=== PATIENT | female | born 1990 | race Asian ===

== ENCOUNTER 2018-09-13 16:28 | Emergency (ER) | payer MEDICAID, OTHER ==
[~2018-09-13] VITALS: Ht 152.4 cm; Wt 80.0 kg
[2018-09-13] MEDS ORDERED: GABA-531 PO (16:48)
[2018-09-13] MEDS ORDERED: LITH300C3 PO (16:48)
[2018-09-13] MEDS ORDERED: DULO20CA30 PO (16:48)
[2018-09-13] MEDS ORDERED: TRAZ-252 PO (16:48)
[2018-09-13] MEDS ORDERED: BENZOCAINE/MENTHOL LOZENGE PO ONE (17:30)
[2018-09-13] MEDS ORDERED: AMOXICILLIN TRIHYDRATE 250 MG CAPSULE PO ONE (17:45)
[2018-09-13 17:55] VITALS: BP 109/77
== END 2018-09-13 18:20 | disposition home or self-care (01) ==
LOC: EMS 16:31 → EDSEX 16:31 → EMS 18:20
DX: J02.9 Acute pharyngitis, unspecified (principal); H92.03 Otalgia, bilateral; R51 Headache; F31.9 Bipolar disorder, unspecified; F12.90 Cannabis use, unspecified, uncomplicated; F41.9 Anxiety disorder, unspecified
CPT/HCPCS: 87430

== ENCOUNTER 2018-09-26 14:39 | Emergency (ER) | payer MEDICAID ==
[~2018-09-26] VITALS: Ht 152.4 cm; Wt 75.0 kg
[~2018-09-26 14:39] MED LIST: DULO20CA30 PO; GABA-531 PO; LITH300C3 PO; TRAZ-252 PO
[2018-09-26] MEDS ORDERED: DEXAMETHASONE SOD PHOS 4 MG/ML 5 ML VIAL IM ONE (15:45)
[2018-09-26] MEDS ORDERED: ACETAMINOPHEN 500 MG TABLET PO ONE (15:45)
[2018-09-26] MEDS ORDERED: AMOX TR/POT CLAV 875 MG/125 MG TABLET PO ONE (15:45)
[2018-09-26 16:30] VITALS: BP 137/84
== END 2018-09-26 16:39 | disposition home or self-care (01) ==
LOC: EMS 14:41
DX: J02.0 Streptococcal pharyngitis (principal); F31.9 Bipolar disorder, unspecified; F12.90 Cannabis use, unspecified, uncomplicated; Z88.8 Allergy status to other drugs, medicaments and biological substances
CPT/HCPCS: 96372; 99283; J1100

== ENCOUNTER 2020-07-01 02:47 | Inpatient (IN) | payer MEDICAID ==
[~2020-07-01] VITALS: Ht 157.5 cm; Wt 78.3 kg
[~2020-07-01 02:47] MED LIST changes: +DULO20CA27 PO; -DULO20CA30 PO; +GABA-1181 PO; -GABA-531 PO
[2020-07-01] MEDS ORDERED: LORazepam 2 MG TABLET PO PRN (10:45)
[2020-07-01] MEDS ORDERED: ZOLPIDEM TARTRATE 10 MG TABLET PO PRN (10:45)
[2020-07-01] MEDS ORDERED: HALOPERIDOL 5 MG TABLET PO PRN (10:45)
[2020-07-01] MEDS ORDERED: DULO-8 PO (10:56)
[2020-07-01] MEDS ORDERED: LamoTRIgine 25 MG TABLET PO SCH (12:30)
[2020-07-01] MEDS: DULoxetine HCL 60 MG CAPSULE PO SCH (12:43)
[2020-07-01 13:08] VITALS: BP 125/67
[2020-07-01] MEDS ORDERED: IBUPROFEN 400 MG TABLET PO PRN (15:30)
[2020-07-01] MEDS ORDERED: DOCUSATE SODIUM 100 MG CAPSULE PO PRN (15:30)
[2020-07-01] MEDS ORDERED: LOPERAMIDE HCL 2 MG CAPSULE PO PRN (15:30)
[2020-07-01] MEDS ORDERED: PETROLATUM,WHITE 28 GM JELLY TP PRN (15:30)
[2020-07-01] MEDS ORDERED: GuaiFENesin/D-METHORPHAN [SUGAR-FREE] 200-20MG/10 ML SYRUP UDCUP PO PRN (15:30)
[2020-07-01] MEDS ORDERED: ONDANSETRON HCL 4 MG TABLET PO PRN (15:30)
[2020-07-01] MEDS ORDERED: MAG HYDROX/AL HYDROX/SIMETH ES 30 ML SUSPENSION UDCUP PO PRN (15:30)
[2020-07-01] MEDS ORDERED: MAGNESIUM HYDROXIDE SUSPENSION 30 ML UDCUP PO PRN (15:30)
[2020-07-01] MEDS ORDERED: CloNIDine HCL 0.1 MG TABLET PO PRN (15:30)
[2020-07-01] MEDS ORDERED: NICOTINE 14 MG/24 HOUR PATCH TD PRN (15:30)
[2020-07-01] MEDS ORDERED: ALBUTEROL SULFATE HFA 90 MCG/PUFF 8 GM INHALER IH PRN (15:30)
[2020-07-01] MEDS ORDERED: ACETAMINOPHEN 325 MG TABLET PO PRN (15:30)
[2020-07-01 16:03] VITALS: BP 113/87
[2020-07-01] MEDS: CLINDAMYCIN HCL 300 MG CAPSULE PO SCH ×2 (17:58→20:02)
[2020-07-01] MEDS: TraZODone HCL 100 MG TABLET PO SCH (20:02)
[2020-07-02 00:18] VITALS: BP 114/76
[2020-07-02 07:41] LABS: BASOPHILS % (AUTO) 0.8 % (0.0-2.0); HEMATOCRIT 42.1 % (36-46); HEMOGLOBIN 13.3 g/dL (12.0-16.0); LYMPHOCYTES # (AUTO) 1.8 K/uL (1.0-4.8); LYMPHOCYTES % (AUTO) 30.6 % (22.0-44.0); MEAN CORPUSCULAR HEMOGLOBIN 23.1 pg (26.0-34.0); MEAN CORPUSCULAR HGB CONC 31.6 G/dL (31.0-37.0); MEAN CORPUSCULAR VOLUME 73 fL (80-100); MONOCYTES # (AUTO) 0.7 K/uL (0.1-1.0); MONOCYTES % (AUTO) 11.4 % (2.0-9.0); NEUTROPHILS # (AUTO) 3.2 K/uL (1.8-7.7); NEUTROPHILS % (AUTO) 55.2 % (40.0-70.0); PLATELET COUNT (AUTO) 351 K/uL (150-450); RED BLOOD CELL COUNT(AUTO) 5.75 MIL/uL (4.00-5.20); RED CELL DISTRIBUTION WIDTH 15.5 % (11.5-14.5)
[2020-07-02 08:06] LABS: HEMOGLOBIN A1C 5.3 % (3.8-5.6)
[2020-07-02 08:12] LABS: ALANINE AMINOTRANSFERASE 33 U/L (12-78); ALKALINE PHOSPHATASE 63 U/L (46-116); ANION GAP 13 mmol/L (8-16); ASPARTATE AMINOTRANSFERASE 15 U/L (15-37); BILIRUBIN,TOTAL 0.4 mg/dL (0.1-1.0); CALCIUM, TOTAL 9.1 mg/dL (8.8-10.5); CARBON DIOXIDE 23 mmol/L (22-29); CHLORIDE 106 mmol/L (98-107); CHOL/HDL RATIO 4.4 (3.9-5.7); CHOLESTEROL 167 mg/dL (131-200); CREATININE 0.81 mg/dL (0.60-1.30); FREE T4 (FREE THYROXINE) 1.15 ng/dL (0.76-1.46); GLOMERULAR FILTR. RATE CALC > 60 mL/min (>60); GLUCOSE,RANDOM 102 mg/dL (70-110); HDL CHOLESTEROL 38 mg/dL (40-60); LDL CHOL (CALC.) 111 mg/dL (0-130); POTASSIUM 3.8 mmol/L (3.5-5.1); SODIUM SERUM 142 mmol/L (136-145); THYROID STIMULATING HORMONE 2.28 uIU/mL (0.36-3.74); TOTAL PROTEIN, SERUM 7.9 g/dL (6.4-8.2); TRIGLYCERIDES 88 mg/dL (15-150); UREA NITROGEN, BLOOD 13 mg/dL (7-18)
[2020-07-02] MEDS: CLINDAMYCIN HCL 300 MG CAPSULE PO SCH ×4 (08:14→20:08)
[2020-07-02] MEDS: DULoxetine HCL 60 MG CAPSULE PO SCH (08:14)
[2020-07-02 08:15] VITALS: BP 115/71
[2020-07-02 16:01] VITALS: BP 112/64
[2020-07-02] MEDS: TraZODone HCL 100 MG TABLET PO SCH (20:08)
[2020-07-02] MEDS ORDERED: PRAZOSIN HCL 2 MG CAPSULE PO SCH (21:00)
[2020-07-02] MEDS ORDERED: LamoTRIgine 25 MG TABLET PO SCH (21:00)
[2020-07-03 06:43] VITALS: BP 114/76
[2020-07-03] MEDS: CLINDAMYCIN HCL 300 MG CAPSULE PO SCH ×2 (08:16→12:51)
[2020-07-03] MEDS: DULoxetine HCL 60 MG CAPSULE PO SCH (08:16)
[2020-07-03 08:18] VITALS: BP 133/83
[2020-07-03] MEDS ORDERED: LAMO25TA66 PO (12:20)
[2020-07-03] MEDS ORDERED: PRAZ2 PO (12:20)
[2020-07-03] MEDS ORDERED: TRAZ-257 PO (12:20)
[2020-07-03] MEDS ORDERED: DULO-8 PO (12:20)
== END 2020-07-03 16:02 | disposition home or self-care (01) | DRG 753 ==
LOC: B2S 10:52
PROVIDERS: ADMIT Psychiatry & Neurology Child & Adolescent Psychiatry; ATTEND Psychiatry & Neurology Child & Adolescent Psychiatry
DX: F31.4 Bipolar disorder, current episode depressed, severe, without psychotic features (principal); E66.9 Obesity, unspecified; F12.90 Cannabis use, unspecified, uncomplicated; F17.210 Nicotine dependence, cigarettes, uncomplicated; K59.00 Constipation, unspecified; Z68.31 Body mass index [BMI] 31.0-31.9, adult
CPT/HCPCS: 83036; 84439; 84443; 86592